=== PATIENT | male | born 1950 | race Caucasian/White ===

== ENCOUNTER → 2024-06-09 10:45 | Outpatient (BNVA) | payer MEDICARE, SELFPAY | PROVIDERS: PCP Family Medicine; Visit Provider Podiatrist | DX: L84 Corns and callosities (principal); M67.00 Short Achilles tendon (acquired), unspecified ankle; E11.42 Type 2 diabetes mellitus with diabetic polyneuropathy; I10 Essential (primary) hypertension; E55.9 Vitamin D deficiency, unspecified; R20.2 Paresthesia of skin; R09.89 Other specified symptoms and signs involving the circulatory and respiratory systems | CPT/HCPCS: 11056; 99203 ==